=== PATIENT | male | born 1980 | race African-American/Black ===

== ENCOUNTER 2024-05-03 17:16 | Emergency (ER) | payer SELFPAY ==
[2024-05-03] VITALS (9 sets, daily range): BP systolic 105–136; BP diastolic 61–78; PULSE 74–86; RESP 14–20; TEMP 36.3–36.9; O2SAT 95–100; BMI 22.4
--- NOTE | 2024-05-03 17:34 | PC.NURSE ---
verbal order per dr velazquez to give pt 4mg morphine and 4mg zofran to pt for pain
[2024-05-03] MEDS: MORPHINE 4MG/ML SYRINGE 4 MG IV (17:35)
[2024-05-03] MEDS: ONDANSETRON 4MG/2ML VIAL 4 MG IV ×2 (17:35→18:15)
--- NOTE | 2024-05-03 17:41 | XR_ITS ---
PROCEDURE INFORMATION: Exam: XR Right Shoulder Exam date and time: 05/03/2024 6:00 PM Age: 44 years old Clinical indication: Injury or trauma; Other: Trauma, pain; Dislocation; Severity not specified; Shoulder; Right TECHNIQUE: Imaging protocol: Radiologic exam of the right shoulder. Views: 1 view. COMPARISON: No relevant prior studies available. FINDINGS: Bones/joints: Anteroinferior dislocation of humerus on glenoid. No obvious fracture. Soft tissues: Unremarkable. IMPRESSION: Anterior shoulder dislocation.
--- NOTE | 2024-05-03 18:14 | XR_ITS ---
PROCEDURE INFORMATION: Exam: XR Right Shoulder Exam date and time: 05/03/2024 6:54 PM Age: 44 years old Clinical indication: Injury or trauma; Fall; Dislocation; Humerus, proximal end and shoulder; Right; Additional info: Post-reduction TECHNIQUE: Imaging protocol: Radiologic exam of the right shoulder. Views: 1 view. COMPARISON: CR XR SHOULDER RT MIN 2V 05/03/2024 6:00 PM FINDINGS: Bones/joints: Anatomically reduced shoulder dislocation. No obvious fracture seen. Soft tissues: Unremarkable. IMPRESSION: Anatomically reduced shoulder dislocation.
--- NOTE | 2024-05-03 18:15 | XR_ITS ---
PROCEDURE INFORMATION: Exam: XR Right Elbow Exam date and time: 05/03/2024 6:54 PM Age: 44 years old Clinical indication: Injury or trauma; Fall; Dislocation; Humerus, proximal end and shoulder; Right; Additional info: Pain from fall TECHNIQUE: Imaging protocol: Radiologic exam of the right elbow. Views: 1 or 2 views. COMPARISON: CR XR SHOULDER RT MIN 2V 05/03/2024 6:00 PM FINDINGS: Bones/joints: Normal. Soft tissues: Normal. IMPRESSION: No acute findings.
--- NOTE | 2024-05-03 18:15 | XR_ITS ---
PROCEDURE INFORMATION: Exam: XR Right Humerus Exam date and time: 05/03/2024 6:54 PM Age: 44 years old Clinical indication: Injury or trauma; Fall; Dislocation; Humerus, proximal end and shoulder; Right; Additional info: Post reduction TECHNIQUE: Imaging protocol: Radiologic exam of the right humerus. Views: 2 or more views. COMPARISON: CR XR SHOULDER RT MIN 2V 05/03/2024 6:00 PM FINDINGS: Bones/joints: Grossly anatomic alignment of visualized shoulder on single view. No obvious fracture identified. Soft tissues: Unremarkable. IMPRESSION: No acute findings.
--- NOTE | 2024-05-03 18:23 | [facility].EDGENADL ---
Discharge Plan Disposition Patient Disposition: Home, Self-Care Condition: Good Prescriptions Prescriptions: No Action No Known Home Medications Referrals Follow up/Referrals: Hair Santiago DO [Staff Physician] - See instructions Provider,Referral, [Primary Care Provider] - See instructions Activity Restrictions/Add. Instructions Additional Instructions/Restrictions: Keep your sling on to immobilize your shoulder and prevent dislocation again for 1 week. You may remove it to shower, but use caution not to move your shoulder too much. Call orthopedics to schedule an appointment. I am providing you with information for Dr. Santiago. Take tylenol and ibuprofen as needed for pain. For 24 hours, don't do anything that requires attention to detail. This includes going to work, making important decisions, or signing any legal documents. It takes time for the medicine's effects to completely wear off. For your safety, do not drive or operate any machinery that could be dangerous. Wait until the medicine wears off and you can think clearly and react easily. Put ice or a cold pack on your shoulder for 10 to 20 minutes at a time. Try to do this every 1 to 2 hours for the next 3 days (when you are awake). Put a thin cloth between the ice and your skin. You may use warm packs after the first 3 days for 15 to 20 minutes at a time. This can ease pain. Do not do anything that makes the pain worse. Clinical Impressions Clinical Impression: Dislocation of right shoulder joint Stand Alone Forms Stand Alone Forms: Work/School Release Instructions Patient Instructions: DI for Shoulder Dislocation, DI for Moderate Sedation Print Language Print Language: Somali Discharge ED Provider: Josiane Dawkins General Adult HPI General Chief complaint: Extremity Injury, Upper Stated complaint: Dislocated Right shoulder Time Seen by Provider: 05/03/24 17:37 Mode of Arrival: Ambulatory Source of Information: Patient Description of Symptoms (Recalled from ER Triage Doc. by RN): pt presents to the er for possible dislocation of R arm, states he was standing on a piece of tin when it gave way and he grabbed a hold of a rope to keep from falling, states pain is a constant, sharp pain rating it 10/10 History of Present Illness HPI narrative: This patient is a 44-year-old male who denies significant past medical history presenting to the emergency department for evaluation concern for right shoulder injury. Patient reports that he was standing on a piece of tin on a construction site when it gave way, and he grabbed a hold of a rope with his RUE to keep from falling. He felt immediate pain in his shoulder as he fell, being held up by his right arm holding the rope. He did not actually hit the ground or anything else. He did not hit his head or lose consciousness. He has no other injuries besides right shoulder pain/injury. He does not take blood thinners or aspirin. He was well prior to this. Related Data Home Medications ?Medication ?Instructions ?Recorded ?Confirmed No Known Home Medications 05/03/24 05/03/24 Allergies Allergy/AdvReac Type Severity Reaction Status Date / Time No Known Allergies Allergy Verified 05/03/24 17:33 [facility] Disclaimer: The information contained in this section may have been updated after the patient was seen, as this information can be updated by other users. Medical History No significant past medical history Social History Smoking Status: Current every day smoker alcohol intake: never current occupational status: employed Travel in the last 8 weeks: None ROS Obtained: Yes All systems reviewed & no additional complaints except as documented Physical Exam General General appearance: alert Comment: Uncomfortable appearing Head Head exam: atraumatic and normocephalic Eye Eye exam: Present normal appearance, PERRL and EOMI ENT ENT exam: Present normal exam, normal oropharynx, mucous membranes moist and normal external ear exam Neck Neck exam: Present normal inspection, full ROM and trachea midline; Absent tenderness Chest Chest inspection: Present normal inspection and symmetric chest wall rise; Absent tenderness Respiratory Respiratory exam: Present normal lung sounds bilaterally; Absent respiratory distress, wheezes, stridor or accessory muscle use Cardiovascular Cardiovascular exam: Present regular rate and normal rhythm Abdominal Exam Abdominal exam: Present soft; Absent distention, tenderness or guarding Extremities Exam Extremities exam: Present tenderness, normal capillary refill and other (Limited range of motion of right shoulder secondary to obvious dislocation. All compartments soft. Neurovascularly intact distally.); Absent edema Back Exam Back exam: Present normal inspection and full ROM; Absent tenderness Neurological Exam Neurological exam: Present alert, oriented X3, CN II-XII intact and normal gait; Absent motor sensory deficit Psychiatric Psychiatric exam: Present normal affect and normal mood Skin Skin exam: Present warm and dry Medical Decision Making Medical Records Medical records reviewed: Yes I reviewed the patient's medical records. Screening: Per USPSTF and CDC recommendations, given the prevalence of disease in our region, it is our hospital?s policy to screen for HIV and viral Hepatitis for all patients aged 18 and over and those with ongoing risk factors. Jaiden Inquiry Pt receiving controlled substance: No Vital Signs: 05/03/24 17:24 05/03/24 17:26 05/03/24 17:30 Temperature 98.4 F Temperature Source Oral Pulse Rate 80 81 Pulse Rate [Right Radial] 78 Respiratory Rate 18 20 18 Blood Pressure 108/75 L 105/61 L Blood Pressure [Left Arm] 108/75 L Blood Pressure Mean 86 85 Blood Pressure Mean [Left Arm] 86 Blood Pressure Source [Left Arm] Automatic Cuff Blood Pressure Position [Left Arm] Sitting 02 Sat by Pulse Oximetry 95 100 100 Oxygen Delivery Method Room Air 05/03/24 18:01 05/03/24 18:30 05/03/24 18:39 Temperature Temperature Source Pulse Rate 78 76 Pulse Rate [Right Radial] 86 Respiratory Rate 16 14 Blood Pressure 120/78 107/72 L Blood Pressure [Left Arm] 131/74 Blood Pressure Mean 88 83 Blood Pressure Mean [Left Arm] 93 Blood Pressure Source [Left Arm] Blood Pressure Position [Left Arm] 02 Sat by Pulse Oximetry 96 100 100 Oxygen Delivery Method Room Air 05/03/24 18:39 05/03/24 18:45 05/03/24 18:55 Temperature Temperature Source Pulse Rate Pulse Rate [Right Radial] 84 78 74 Respiratory Rate 18 18 16 Blood Pressure Blood Pressure [Left Arm] 117/69 112/78 128/74 Blood Pressure Mean Blood Pressure Mean [Left Arm] 85 89 92 Blood Pressure Source [Left Arm] Blood Pressure Position [Left Arm] 02 Sat by Pulse Oximetry 100 100 100 Oxygen Delivery Method 05/03/24 19:42 Temperature 97.3 F L Temperature Source Pulse Rate 85 Pulse Rate [Right Radial] Respiratory Rate 20 Blood Pressure 136/76 Blood Pressure [Left Arm] Blood Pressure Mean Blood Pressure Mean [Left Arm] Blood Pressure Source [Left Arm] Blood Pressure Position [Left Arm] 02 Sat by Pulse Oximetry Oxygen Delivery Method Room Air Lab Data Lab results reviewed: Yes I reviewed the patient's lab results. Orders (Tests/Meds): ED MEDICATIONS Discontinued Medications Generic Name Dose Route Start Last Admin Trade Name Ankur PRN Reason Stop Dose Admin Fentanyl Citrate 100 mcg 05/03/24 18:14 05/03/24 18:51 Fentanyl 100mcg/2ml Vial IV 05/03/24 18:15 100 mcg ONCE ONE Administration Ketorolac Tromethamine 15 mg 05/03/24 19:19 Ketorolac 30mg/Ml Vial IV 05/03/24 19:20 ONCE ONE Morphine Sulfate 4 mg 05/03/24 17:34 05/03/24 17:35 Morphine 4mg/Ml Syringe IV 05/03/24 17:35 4 mg ONCE ONE Administration Ondansetron HCl 4 mg 05/03/24 17:33 05/03/24 17:35 Ondansetron 4mg/2ml Vial IV 05/03/24 17:34 4 mg ONCE ONE Administration Ondansetron HCl 4 mg 05/03/24 18:15 05/03/24 18:15 Ondansetron 4mg/2ml Vial IV 05/03/24 18:16 4 mg ONCE ONE Administration Propofol 80 mg 05/03/24 18:53 05/03/24 18:39 Propofol 10mg/Ml 20ml Vial IV 05/03/24 18:54 80 mg ONCE ONE Administration ORDERS Category Date Time Status Humerus XR right [XR humerus RT] Stat Exams 05/03/24 18:15 Completed XR elbow RT 2V Stat Exams 05/03/24 18:15 Completed XR shoulder RT 1V Stat Exams 05/03/24 17:41 Completed XR shoulder RT 1V Stat Exams 05/03/24 18:14 Completed Medical Decision Narrative: In summary, this patient is a 44-year-old male presenting to the Emergency Department for evaluation of shoulder injury after grabbing rope with his right arm to keep from falling. Differential diagnoses considered include but are not limited to dislocation, fracture, neurovascular injury. Ruling out the most morbid conditions drove assessment. On exam, the patient is well-appearing. He has obvious dislocation of the right shoulder, he is neurovascularly intact distally in his right upper extremity. No other traumatic injuries noted. He did not actually fall or hit the ground, and he did not lose consciousness. No blood thinners. No history of difficult sedation or intubation. He does not take medications. He was given IV morphine and Zofran for symptomatic improvement of pain. Workup included x-rays of the right shoulder. I independently interpreted stray prior to the radiologist read and noted right shoulder dislocation. Please see their read for final interpretation. On reassessment, the patient has continued severe pain. Given this, he was given IV fentanyl and Zofran. At this time, I discussed with the patient that his shoulder is dislocated and needs to be reduced. I offered reduction with pain medication and no sedation versus sedating him for surgical reduction. He states that he wants to be knocked out. Informed consent was obtained and risk versus benefit of sedation was explained, including difficulty breathing, respiratory failure, allergic reaction, hallucinations, vomiting, among others. He still consents to procedural sedation. Patient underwent procedural sedation for reduction of right shoulder dislocation, which was successfully reduced. I independently interpreted x-ray after reduction and noted no acute fracture, anatomic reduction of right shoulder. Please see radiology read for final interpretation. Patient with returned to his preprocedure baseline, was able to tolerate oral intake. He remained neurovascularly intact in the right upper extremity with no other concerns or complaints and states he feels a lot better. Given this, I feel it is appropriate for discharge home with shoulder immobilizer and instructions for supportive management. He was given instructions for outpatient follow-up with orthopedics. Strict return precautions given. Procedures Risk/Benefits of Procedure(s) Were Explained: Yes Orthopedic Joint Reduction Joint #1: Time Out Performed: Yes Side: right Joint Reduction Location: shoulder Analgesia: procedural sedation Shoulder Technique Used (if applicable): traction/counter-traction Post-reduction neuro exam: intact and no change Post-reduction vascular: intact and no change Post Reduction X-Ray Obtained: Yes Post Reduction X-Ray Results: reduced Splint Applied: Yes (shoulder immobilizer) Patient Tolerated Procedure: well and no complications Procedural Sedation Presedation Evaluation: No history of difficult sedation or intubation, Mallampati 2, ASA 1. Alert, oriented, no known medical problems A heart and lung assessment was performed on this patient at: 18:27 Mallampati Score:: Class II Indication: fracture/dislocation reduction ASA Class: I Preparation: cardiac nurse practitioner applied, pulse oximeter, capnometry used, supplemental O2 applied, reversal agents at bedside, suction/airway equipment at bedside and IV secured IV Propofol dose (mg): 80 Patient Tolerated Procedure: well and no complications Complications: none Additional Comments: Patient returned to pre-procedure baseline Critical Care Critical Care Time Critical Care Time: No
[2024-05-03] MEDS: PROPOFOL 10MG/ML 20ML VIAL 80 MG IV (18:39)
--- NOTE | 2024-05-03 18:45 | PC.NURSE ---
RADIOLOGY NOTIFIED OF XRAY FOR SHOULD PUT BACK IN TO PLACE
[2024-05-03] MEDS: FENTANYL 100MCG/2ML VIAL 100 MCG IV (18:51)
--- NOTE | 2024-05-03 19:14 | PC.NURSE ---
Gave patient a Starry to drink.
== END 2024-05-03 19:45 | disposition home or self-care (01) ==
PROVIDERS: Emergency Provider Emergency Medicine
DX: S43.004A Unspecified dislocation of right shoulder joint, initial encounter (principal); M25.511 Pain in right shoulder; Z72.0 Tobacco use; W17.89XA Other fall from one level to another, initial encounter; Y93.H3 Activity, building and construction; Y92.89 Other specified places as the place of occurrence of the external cause
CPT/HCPCS: 23655; 73020; 73060; 73070; 96374; 96375; 96376; 99152; 99284; J2270; J2405; J3010